=== PATIENT | male | born 1955 | race Caucasian/White ===

== ENCOUNTER 2019-01-20 12:59 | Inpatient (IN) | payer OTHER ==
[2019-01-20] MEDS ORDERED: SODIUM CHLORIDE 0.9% 500 ML 500 ML IV STA (13:06)
[2019-01-20 13:26] LABS: Basophils # (A) 0.1 k/uL (0-0.2); Basophils % (A) 1 %; Eosinophils # (A) 0.1 k/uL (0-0.7); Eosinophils % (A) 1 %; HCT 43.1 % (39.0-53.0); HGB 14.5 gm/dL (13.0-17.5); Lymphocytes # (A) 2.7 k/uL (1.0-4.8); Lymphocytes % (A) 29 %; MCH 30.9 pg (25.0-35.0); MCHC 33.6 g/dL (31.0-37.0); Mean Platelet Volume 7.5; Monocytes # (A) 0.5 k/uL (0-1.0); Monocytes % (A) 6 %; Neutrophils # (A) 5.6 k/uL (1.3-7.7); Neutrophils % (A) 61 %; Platelet Count 295 k/uL (150-450); RBC 4.68 m/uL (4.30-5.90); RDW 13.8 % (11.5-15.5); WBC 9.2 k/uL (3.8-10.6)
[2019-01-20 13:37] LABS: Albumin 3.8 g/dL (3.5-5.0); Calcium 9.7 mg/dL (8.4-10.2); Magnesium 1.9 mg/dL (1.6-2.3); Potassium 4.1 mmol/L (3.5-5.1); Total Protein 6.5 g/dL (6.3-8.2)
--- NOTE | 2019-01-20 13:38 | XR ---
EXAMINATION TYPE: XR chest 2V DATE OF EXAM: 01/20/2019 COMPARISON: None HISTORY: 63-year-old male with syncope TECHNIQUE: AP and lateral views FINDINGS: Heart borderline to mildly enlarged. Mild elongation thoracic aorta. Suggestion of some vascular ecta cheri along the superior mediastinum. Mild interstitial prominence. No consolidation or pleural effusio n. IMPRESSION: Borderline to mild cardiomegaly. Chronic appearing changes. No acute process seen.
[2019-01-20 13:56] LABS: D-Dimer 0.28 mg/L FEU (<0.60); Prothrombin Time 10.3 sec (9.0-12.0)
[2019-01-20 14:08] LABS: Partial Thromboplastin Time 20.5 sec (22.0-30.0)
--- NOTE | 2019-01-20 14:29 | CT ---
EXAMINATION TYPE: CT brain sami zhang con DATE OF EXAM: 01/20/2019 COMPARISON: None HISTORY: 63-year-old male Syncope, pain CT DLP: 1144.2 mGycm Automated exposure control for dose reduction was used. Technique: Examination of the head was done in axial plane without intravenous contrast. Coronal and sagittal reconstructions performed. CT of the cervical spine was obtained in axial plane without intravenous injection of contrast mater ial. Coronal and sagittal reformatted images were obtained from the axial views for evaluation of f ractures, spinal alignment and canal. FINDINGS: Head: There is no evidence of acute intracranial hemorrhage, acute ischemic changes, or extra-axial fluid collection. There is a prominent CSF space along the anterior left middle cranial fossa measuring 4.7 cm AP by 2. 3 cm wide by 3.0 cm craniocaudal with mild localized mass effect onto the left temporal lobe. No effa cement of basal subarachnoid cisterns, midline shift, or hydrocephalus. Blackwell-white matter distinction is preserved. Scattered mild mucosal thickening ethmoid air cells. Polyp or mucosal retention cyst along the floor of the right maxillary sinus. Orbits and globes are intact. Mastoid air cells well pneumatized. Cervical spine: No craniocervical junction abnormality, predental space widening, or prevertebral soft tissue swellin g. Preserved alignment of the cervical spine. Moderate degenerative disc disease at C5-C6 with disc oste ophyte complex contributing to mild focal spinal canal stenosis here. Scattered mild facet and uncovertebral joint degenerative change. No acute fracture of the cervical spine. Sagittal and coronal reformatted images confirm above findings. COMBINED IMPRESSION: 1. No acute intracranial abnormality seen. 2. Prominent 4.7 x 3.0 cm CSF space along the anterior left middle cranial fossa suggestive of an meg chnoid cyst. 3. No acute fracture or malalignment of the cervical spine. Mild to moderate focal spondylotic change at C5-C6.
--- NOTE | 2019-01-20 14:31 | CT ---
EXAMINATION TYPE: CT facial bones wo con DATE OF EXAM: 01/20/2019 COMPARISON: None HISTORY: 63-year-old male Syncope and pain TECHNIQUE: Contiguous high-resolution axial scanning through the facial bones without IV contrast. Co ping reconstructions performed. CT DLP: Included in DLP of Brain and C-spine scan mGycm Automated exposure control for dose reduction was used. FINDINGS: Scattered mild mucosal thickening ethmoid air cells. Polyp or mucosal retention cyst floor of the rig ht maxillary sinus and lobulated mucosal thickening floor of the left maxillary sinus. Zygomatic arches, orbits and globes, pterygoid plates, and the visualized mandible appears intact. Leftward nasal septal deviation. No nasal bone or facial bone fracture seen. IMPRESSION: NO ACUTE FACIAL BONE FRACTURE SEEN. MILD CHRONIC ETHMOID AND MAXILLARY SINUS DISEASE. SLIGHT LEFTWARD NASAL SEPTAL DEVIATION.
--- NOTE | 2019-01-20 17:05 | ED ---
Syncope HPI - General Chief Complaint: Syncope Stated Complaint: SYNCOPE Source: EMS Mode of arrival: EMS Limitations: no limitations - History of Present Illness Initial Comments: The patient is a 63-year-old male presents to the emergency room with reported syncopal episode at home. Patient reports he was at home with his . He did have a exhibition specialist come to his house to get him an estimated. States that he offered him a hit off of his THC vape pen. Patient reports that he took a hit. Shortly afterwards he became acutely diaphoretic and lost consciousness. reports that the patient was unconscious for approximately 15 seconds. She reports that he hit his right side of his head on the table. There was no seizure-like activity. No bowel or bladder incontinence. The patient denies any chest pain or shortness of breath with the episode. The patient denies a history of cardiac disease however the patient has not seen a physician in over 25 years. He takes no prescribed medications. He denies using any other illicit substances. Denies any headache or visual changes. No ripping or tearing sensation to his back. EMS was called. They report the patient was diaphoretic. Peripheral IV was established patient was given gentle fluid hydration. 12 lead EKG was performed. He denies any diarrhea, cuts patient, melanotic stools or hematochezia. Denies any changes in his bladder habits. No back or Flank pain. There are no alleviating, Percepting or modifying factors - Related Data Home Medications Medication Instructions Recorded Confirmed No Known Home Medications 01/20/19 01/20/19 Allergies Allergy/AdvReac Type Severity Reaction Status Date / Time No Known Allergies Allergy Verified 01/20/19 14:06 Review of Systems ROS Statement: Those systems with pertinent positive or pertinent negative responses have been documented in the HPI. ROS Other: All systems not noted in ROS Statement are negative. Past Medical History Past Medical History: Atrial Fibrillation History of Any Multi-Drug Resistant Organisms: None Reported Past Surgical History: Tonsillectomy Past Psychological History: No Psychological Hx Reported Smoking Status: Former smoker Past Alcohol Use History: Daily Past Drug Use History: None Reported - Past Family History Father Family Medical History: Diabetes Mellitus, Myocardial Infarction ([place]) General Exam Limitations: no limitations Course Vital Signs 01/20/19 01/20/19 01/20/19 13:01 13:12 15:12 Temperature 97.5 F L Pulse Rate 63 63 Respiratory 18 18 Rate Blood Pressure 101/74 119/75 129/96 O2 Sat by Pulse 98 Oximetry 01/20/19 18:11 Temperature Pulse Rate 85 Respiratory 18 Rate Blood Pressure 110/87 O2 Sat by Pulse 98 Oximetry EKG Findings - EKG Comments: EKG Findings:: EKG demonstrates A. fib versus flutter with a ventricular rate of 63. QRS 114. QTC 456. There is ST elevation in leads V2 and V3. He does have some inverted T waves in 2 and 3. There is a mild intraventricular conduction delay Medical Decision Making - Medical Decision Making Upon arrival patient is placed in room 3. He is hooked up to continuous pulse ox and vehicle monitor technician. A 12-lead EKG is performed and the patient which does demonstrate atrial flutter with a controlled ventricular response. There is also ST segment elevation in the anterior leads. The patient is pain-free at this time. I did recommend fluid hydration and laboratory studies. The patient is sent for a CT of his brain, cervical spine, facial bones and orbits. Chest x-ray is also performed. Upon return results there discuss the patient. Labwork is essentially unremarkable. Chest x-ray does demonstrate an enlarged cardiac silhouette. I did place proparacaine in the patient's right eye. The patient's eye was dyed with a flourocine strip. It does reveal a corneal abrasion at the 9 o'clock was addition. Visual acuity demonstrates 20/50 in the left eye, 20/40 in the right eye and 20/20 bilaterally. The patient was admitted to Dr. Gregg. I did discuss the case with him. I will place ca rdiology and ophthalmology on consult. The patient remained in stable condition was transported to the floor - Lab Data Result diagrams: 01/20/19 13:11 01/20/19 13:11 Lab Results 01/20/19 01/20/19 01/20/19 Range/Units 13:11 13:11 13:11 WBC 9.2 (3.8-10.6) k/uL RBC 4.68 (4.30-5.90) m/uL Hgb 14.5 (13.0-17.5) gm/dL Hct 43.1 (39.0-53.0) % MCV 92.0 (80.0-100.0) fL MCH 30.9 (25.0-35.0) pg MCHC 33.6 (31.0-37.0) g/dL RDW 13.8 (11.5-15.5) % Plt Count 295 (150-450) k/uL Neutrophils % 61 % Lymphocytes % 29 % Monocytes % 6 % Eosinophils % 1 % Basophils % 1 % Neutrophils # 5.6 (1.3-7.7) k/uL Lymphocytes # 2.7 (1.0-4.8) k/uL Monocytes # 0.5 (0-1.0) k/uL Eosinophils # 0.1 (0-0.7) k/uL Basophils # 0.1 (0-0.2) k/uL PT 10.3 (9.0-12.0) sec INR 1.0 (<1.2) APTT 20.5 L (22.0-30.0) sec D-Dimer 0.28 (<0.60) mg/L FEU Sodium 140 (137-145) mmol/L Potassium 4.1 (3.5-5.1) mmol/L Chloride 107 (98-107) mmol/L Carbon Dioxide 24 (22-30) mmol/L Anion Gap 9 mmol/L BUN 29 H (9-20) mg/dL Creatinine 1.23 (0.66-1.25) mg/dL Est GFR (CKD-EPI)AfAm 72 (>60 ml/min/1.73 sqM) Est GFR (CKD-EPI)NonAf 62 (>60 ml/min/1.73 sqM) Glucose 131 H (74-99) mg/dL Calcium 9.7 (8.4-10.2) mg/dL Magnesium 1.9 (1.6-2.3) mg/dL Total Bilirubin 1.0 (0.2-1.3) mg/dL AST 38 (17-59) U/L ALT 42 (21-72) U/L Alkaline Phosphatase 53 (38-126) U/L Troponin I (0.000-0.034) ng/mL Total Protein 6.5 (6.3-8.2) g/dL Albumin 3.8 (3.5-5.0) g/dL 01/20/19 Range/Units 13:11 WBC (3.8-10.6) k/uL RBC (4.30-5.90) m/uL Hgb (13.0-17.5) gm/dL Hct (39.0-53.0) % MCV (80.0-100.0) fL MCH (25.0-35.0) pg MCHC (31.0-37.0) g/dL RDW (11.5-15.5) % Plt Count (150-450) k/uL Neutrophils % % Lymphocytes % % Monocytes % % Eosinophils % % Basophils % % Neutrophils # (1.3-7.7) k/uL Lymphocytes # (1.0-4.8) k/uL Monocytes # (0-1.0) k/uL Eosinophils # (0-0.7) k/uL Basophils # (0-0.2) k/uL PT (9.0-12.0) sec INR (<1.2) APTT (22.0-30.0) sec D-Dimer (<0.60) mg/L FEU Sodium (137-145) mmol/L Potassium (3.5-5.1) mmol/L Chloride (98-107) mmol/L Carbon Dioxide (22-30) mmol/L Anion Gap mmol/L BUN (9-20) mg/dL Creatinine (0.66-1.25) mg/dL Est GFR (CKD-EPI)AfAm (>60 ml/min/1.73 sqM) Est GFR (CKD-EPI)NonAf (>60 ml/min/1.73 sqM) Glucose (74-99) mg/dL Calcium (8.4-10.2) mg/dL Magnesium (1.6-2.3) mg/dL Total Bilirubin (0.2-1.3) mg/dL AST (17-59) U/L ALT (21-72) U/L Alkaline Phosphatase (38-126) U/L Troponin I <0.012 (0.000-0.034) ng/mL Total Protein (6.3-8.2) g/dL Albumin (3.5-5.0) g/dL Disposition Clinical Impression: Syncope and collapse, New onset a-fib Disposition: ADMITTED IP TO THIS [facility] Condition: Serious Is patient prescribed a controlled substance at d/c from ED?: No Decision to Admit Reason: Admit from EC Decision Date: 01/20/19 Decision Time: 17:10
[2019-01-20] MEDS ORDERED: PROPARACAINE 0.5% OPHTH DROPS 15 ML BTL RIGHT EYE STA (17:10)
[2019-01-20] MEDS ORDERED: NALOXONE 0.4 MG/ML 1 ML VIAL IV PRN (17:12)
--- NOTE | 2019-01-20 18:50 | P.HPIM ---
History of Present Illness H&P Date: 01/20/19 Chief Complaint: Syncope 63-year-old male with no significant PMH presents the ED after syncopal episode. He is here with his . Patient reports completing a 13 mile jog a couple of hours prior to his syncopal episode. He was able to eat 3 cookies and a bowl of cereal after his workup. He was sitting at the kitchen table when he inhaled the vape pen of someone that was working in his house. Patient reports not knowing what substance was in the vape pen. Within 10 minutes, patient started to feel lightheaded, sweating, shortness of breath. He had a syncopal episode and his is present. reports that the patient lost consciousness for 1 minute. She denied any shaking of extremities, bladder or bowel incontinence. reports that patient's pupils looked dilated bilaterally. When patient regained consciousness, he felt weak and wobbly. reports that the patient may have stopped breathing during this time. She was concerned, prompting her to call EMS. Patient denies any history of smoking. Patient reports smoking marijuana, recreationally and drinks 2 beers daily. Patient denies any headaches, lower extremity edema, nausea or vomiting, fever or chills, cough, chest pain, changes in urination or bowel habits. No changes in appetite or weight. Patient does report a 2-3 month history of decreased exercise tolerance during this time. In the ED, his vital signs were stable. CBC and coagulation panel was negative. D-dimer was negative. CMP showed BUN of 29, glucose of 131. Troponin was less than 0.012, EKG showing atrial fibrillation. Patient is admitted for syncopal episode, new onset A. fib with cardiology on consult. Review of Systems Pertinent positives and negatives as discussed in HPI, a complete review of systems was performed and all other systems are negative. Past Medical History Past Medical History: Atrial Fibrillation History of Any Multi-Drug Resistant Organisms: None Reported Past Surgical History: Tonsillectomy Past Psychological History: No Psychological Hx Reported Smoking Status: Former smoker Past Alcohol Use History: Daily Past Drug Use History: None Reported Medications and Allergies Home Medications Medication Instructions Recorded Confirmed Type No Known Home Medications 01/20/19 01/20/19 History Allergies Allergy/AdvReac Type Severity Reaction Status Date / Time No Known Allergies Allergy Verified 01/20/19 14:06 Physical Exam Vitals: Vital Signs Temp Pulse Resp BP Pulse Ox 01/20/19 18:11 85 18 110/87 98 01/20/19 15:12 63 18 129/96 98 01/20/19 13:12 119/75 01/20/19 13:01 97.5 F L 63 18 101/74 Intake and Output 01/20/19 01/20/19 01/20/19 06:59 14:59 22:59 Other: Weight 81.647 kg General: [non toxic], [no distress], [appears at stated age] Derm: [warm], [dry] Head: [atraumatic], [normocephalic], [symmetric] Eyes: [EOMI], [no lid lag], [anicteric sclera] Mouth: [no lip lesion], [mucus membranes moist] Cardiovascular: [S1S2 reg], [irregularly irregular], [positive posterior tibial pulse bilateral], Lungs: [CTA bilateral], [no rhonchi, no rales] , [no accessory muscle use] Abdominal: [soft], [ nontender to palpation], [no guarding], [no appreciable organomegaly] Ext: [no gross muscle atrophy], [no edema], [no contractures] Neuro: [ CN II-XI grossly intact], [no focal neuro deficits] Psych: [Alert], [oriented], [appropriate affect] Results CBC & Chem 7: 01/20/19 13:11 01/20/19 13:11 Labs: Abnormal Lab Results - Last 24 Hours (Table) 01/20/19 01/20/19 Range/Units 13:11 13:11 APTT 20.5 L (22.0-30.0) sec BUN 29 H (9-20) mg/dL Glucose 131 H (74-99) mg/dL Thrombosis Risk Factor Assmnt - Choose All That Apply Any of the Below Risk Factors Present?: Yes Each Factor Represents 1 point: Obesity (BMI >25) Each Risk Factor Represents 2 Points: Age 61-74 years Thrombosis Risk Factor Assessment Total Risk Factor Score: 3 Thrombosis Risk Factor Assessment Level: Moderate Risk Assessment and Plan Assessment: Assessment and Plan Syncopal episode possibly vasovagal from inhalation of THC or arrhythmia induced, rule out acute coronary syndrome New-onset atrial fibrillation Troponin less than 0.012 with EKG showing atrial fibrillation. Chest x-ray with no acute process and cardiomegaly. CT brain shows arachnoid cyst, CT C-spine shows spondyolitic changes. Plans: Check orthostats. Trend troponin/EKG to rule out ACS. Follow-up echocardiogram. Telemetry monitoring. Continue normal saline at 100 mL/h. Follow cardiology consultation. As seen on EKG. Plans: Obtain echocardiogram. Check TSH. Follow cardiology consultation. Defer anticoagulation to cardiology. DVT prophylaxis: Heparin Discussed with: [Patient and ] Anticipated discharge: [1-2 days] Anticipated discharge place: [Home] A total of [45] minutes was spent on the care of this complex patient more than 50% of the time was spent in counseling and care coordination. Patient names his Romero decision-maker in the case that he can't make decisions for himself. Patient would like to remain full code.
[2019-01-20] MEDS ORDERED: HYDROcodone/APAP 5-325MG 1 EACH TAB PO PRN (18:51)
[2019-01-20] MEDS ORDERED: ACETAMINOPHEN TAB 325 MG TAB PO PRN (18:51)
[2019-01-20] MEDS: HEPARIN SODIUM,PORCINE 5,000 UNIT/ML 1 ML VIAL SQ SCH (21:53)
[2019-01-20] MEDS: SODIUM CHLORIDE 0.9% 1,000 ML IV SCH (21:54)
[2019-01-21 06:35] LABS: Basophils % (A) 1 %; Eosinophils # (A) 0.1 k/uL (0-0.7); Eosinophils % (A) 2 %; HCT 41.7 % (39.0-53.0); HGB 13.7 gm/dL (13.0-17.5); Lymphocytes # (A) 2.2 k/uL (1.0-4.8); Lymphocytes % (A) 36 %; MCH 30.5 pg (25.0-35.0); MCHC 32.7 g/dL (31.0-37.0); MCV 93.3 fL (80.0-100.0); Mean Platelet Volume 7.6; Monocytes # (A) 0.4 k/uL (0-1.0); Monocytes % (A) 6 %; Neutrophils # (A) 3.2 k/uL (1.3-7.7); Neutrophils % (A) 53 %; Platelet Count 248 k/uL (150-450); RBC 4.47 m/uL (4.30-5.90); RDW 14.3 % (11.5-15.5); WBC 6.1 k/uL (3.8-10.6)
[2019-01-21 06:44] LABS: Calcium 9.3 mg/dL (8.4-10.2)
[2019-01-21 06:46] LABS: Potassium 6.2 mmol/L (3.5-5.1)
[2019-01-21] MEDS ORDERED: DEXTROSE 10 % IN WATER 250 ML BAG IV STA (07:02)
[2019-01-21] MEDS ORDERED: INSULIN REGULAR 100 UNIT/ML VIAL IV ONE (07:03)
[2019-01-21] MEDS: HEPARIN SODIUM,PORCINE 5,000 UNIT/ML 1 ML VIAL SQ SCH ×2 (08:34→20:57)
--- NOTE | 2019-01-21 10:56 | CONS ---
CONSULTATION CHIEF COMPLAINT: Syncope. This is a 63-year-old gentleman with no significant past medical history, presented to the hospital having had an episode of syncope. The patient ran 14 miles yesterday, came home. A couple of hours later he was sitting at a table and was smoking an E cigarette and then passed out. This was transient. No bladder or bowel incontinence. Sudden, at rest. No clear-cut relieving or exacerbating factors. The patient recovered from this spontaneously. He came to the ER where he was found to be in atrial fibrillation with controlled ventricular rate. The patient states that he has noticed irregular heart rhythm on and off in the past. Has never seen a physician in many years. There is no history of coronary artery disease or congestive heart failure. There is no history of leg edema, PND or orthopnea. There is no history of valvular heart disease. PAST MEDICAL HISTORY: Negative for hypertension, diabetes, dyslipidemia. MEDICATIONS: None. ALLERGIES: None. FAMILY HISTORY: Negative for premature coronary artery disease. SOCIAL HISTORY: Negative for smoking, EtOH abuse or drug abuse. REVIEW OF SYSTEMS: HEENT: Unremarkable. CARDIAC: As described above. RESPIRATORY: Negative. GI: Negative. GENITOURINARY: Negative. ALLERGY: Negative. SKIN: Negative. MUSCULOSKELETAL: Negative for arthritis. PSYCHOSOCIAL: Negative. ENDOCRINE: Negative. DERM: Negative. CONSTITUTIONAL: Negative. ONCOLOGICAL: Negative. Rest of the system review is not relevant. EXAM: Comfortable at rest. Vital signs are stable. There is no jugular venous distention. Carotid upstroke is normal. There is no bruit. Chest exam reveals good air entry bilaterally. Heart exam reveals first and second heart sounds, irregular rhythm and a systolic murmur at the left lower sternal border. Abdomen is soft. Examination of extremities did not reveal any edema. Peripheral pulses are felt. EKG shows atrial fibrillation with controlled ventricular rate. Hemoglobin is normal at 13.7, platelet count is 248, creatinine is 1.2 on admission. His BUN was 29, creatinine was 1.2. Tropes are negative. TSH is normal. ASSESSMENT: 1. Syncope. 2. Persistent atrial fibrillation. PLAN: The patient's syncope could be related to slow heart rate from his atrial fibrillation, could be related to the inhalation from the E cigarette or could be intravascular volume depletion. Since admission he is doing well. Did not have significant pauses. I am going to obtain an echo on him to evaluate his LV function. I talked to him at length about his treatment options. Understanding all the issues, patient does not want to go to cardioversion. Does not want to start on anticoagulant. I will start him on aspirin 325 mg daily, obtain an echo in the morning. If he is doing good, let him go home and arrange outpatient followup through my office. This morning the potassium is elevated, but the exact significance of this is unclear. The initial potassium was normal. MMODL / IJN: [id number] /
[2019-01-21 11:50] LABS: Calcium 9.5 mg/dL (8.4-10.2); Potassium 4.6 mmol/L (3.5-5.1)
[2019-01-21] MEDS: ASPIRIN 325 MG TAB PO SCH (11:57)
[2019-01-21 12:39] VITALS: RESP 18
--- NOTE | 2019-01-21 12:57 | P.PN ---
Subjective Progress Note Date: 01/21/19 Principal diagnosis: Syncope Patient was seen and examined. No acute events overnight. Patient reports complete resolution of his symptoms. He denies any chest pain, shortness breath or palpitations. No nausea or vomiting. No fever or chills. States that he had a funny feeling when taking aspirin this morning. Objective - Vital Signs Vital signs: Vital Signs Temp 97.8 F 01/21/19 12:00 Pulse 58 L 01/21/19 12:00 Resp 18 01/21/19 12:00 BP 121/65 01/21/19 12:00 Pulse Ox 98 01/21/19 12:00 Intake & Output 01/20/19 01/21/19 01/21/19 18:59 06:59 18:59 Intake Total 240 480 Balance 240 480 Weight 81.647 kg 84.1 kg Intake: Oral 240 480 Other: Voiding Method Toilet # Voids 1 - Exam General: [non toxic], [no distress], [appears at stated age] Derm: [warm], [dry] Head: [atraumatic], [normocephalic], [symmetric] Eyes: [EOMI], [no lid lag], [anicteric sclera] Mouth: [no lip lesion], [mucus membranes moist] Cardiovascular: [S1S2 reg], [irregularly irregular], [positive DP and PT pulse bilateral], Lungs: [CTA bilateral], [no rhonchi, no rales] , [no accessory muscle use] Abdominal: [soft], [ nontender to palpation], [no guarding], [no appreciable organomegaly] Ext: [no gross muscle atrophy], [no edema], [no contractures] Neuro: [no focal neuro deficits] Psych: [Alert], [oriented], [appropriate affect] - Labs CBC & Chem 7: 01/21/19 05:43 01/21/19 11:29 Labs: Abnormal Lab Results - Last 24 Hours (Table) 01/20/19 01/20/19 01/21/19 Range/Units 13:11 13:11 05:43 APTT 20.5 L (22.0-30.0) sec Potassium 6.2 H* (3.5-5.1) mmol/L Chloride 110 H (98-107) mmol/L BUN 29 H 22 H (9-20) mg/dL Glucose 131 H (74-99) mg/dL 01/21/19 Range/Units 11:29 APTT (22.0-30.0) sec Potassium (3.5-5.1) mmol/L Chloride 110 H (98-107) mmol/L BUN 24 H (9-20) mg/dL Glucose 73 L (74-99) mg/dL Assessment and Plan Assessment: Assessment and Plan Syncopal episode possibly vasovagal from inhalation of THC or arrhythmia induced, rule out acute coronary syndrome New-onset atrial fibrillation Hyperkalemia Elevated BUN Troponin less than 0.012 3 with EKG showing atrial fibrillation. Chest x-ray with no acute process and cardiomegaly. CT brain shows arachnoid cyst, CT C- spine shows spondyolitic changes. Plans: Check orthostats, discussed with nurse. ACS ruled out. Follow-up echocardiogram. Telemetry monitoring. Continue normal saline at 100 mL/h. Follow cardiology consultation. As seen on EKG. TSH within normal limits. Plans: Obtain echocardiogram. Follow cardiology consultation. Anticoagulation with aspirin 325 mg by mouth daily as per cardiology patient does not want anticoagulation. Potassium 6.2 and given insulin with D10. Plans: Repeat potassium within normal limits. Repeat BMP in the morning. BUN 24 likely due to dehydration. Creatinine within normal limits. Plans: Continue normal saline as above. Daily BMP. [Patient admitted for syncopal episode. Evaluated by cardiology, echocardiogram pending. DC planning based on cardiology clearance.]
[2019-01-21] MEDS: prednisoLONE ACETATE 1% OPHTH DROPS 5 ML BTL RIGHT EYE SCH ×3 (13:45→20:58)
[2019-01-21] MEDS: OFLOXACIN 0.3% OPHTH DROPS 5 ML BOTTLE RIGHT EYE SCH ×2 (13:46→20:58)
[2019-01-21] MEDS: SODIUM CHLORIDE 0.9% 1,000 ML IV SCH ×2 (13:48→15:29)
--- NOTE | 2019-01-22 00:11 | CONS ---
CONSULTATION OPHTHALMOLOGY CONSULT: DATE OF SERVICE: 01/21/2019. CHIEF COMPLAINT: Irritation, right eye. HISTORY OF PRESENT ILLNESS: Mr. Gutierrez is a 63-year-old male with a recent syncopal episode and currently has irritation in his right eye. The patient notes that his right eye is slightly red and slightly irritated. This is mild per the patient. This has been constant since the syncopal episode last night. Visual acuity is not affected. He denies headache. REVIEW OF SYSTEMS: Significant for loss of consciousness and syncopal episode last night. He recently felt lightheaded and sweaty and short of breath. He denies headaches, lower extremity edema, nausea, vomiting, chills or cough or chest pain. PAST MEDICAL HISTORY: Atrial fibrillation. SOCIAL HISTORY: Smoking status, former smoker, uses the Vape pen. Social history: Daily alcohol use. PAST SURGICAL HISTORY: Tonsillectomy. MEDICATIONS: No known home medications. ALLERGIES: No known drug allergies. OPHTHALMIC EXAM: Visual acuity is 20/30 at near with near card without correction in the right eye, 20/60 at near with near card with correction in the left eye. Pupils are equal, round, reactive to light and accommodation. There is no afferent pupillary defect. Extraocular movements are full. Visual field is normal to confrontation. Cornea is clear in both eyes. There is slight injection in the conjunctivae in the right eye. There is trace cell in the anterior chamber in the right eye. The anterior chamber is within normal limits in the left eye. There is 1+ nuclear sclerotic cataract in both eyes. The retina and vitreous are within normal limits. ASSESSMENT: Traumatic iritis, right eye. The patient appears to have suffered a contusion to the right eye. There is currently no corneal epithelial defect. I recommend starting prednisolone acetate, prednisolone acetate 1% drops in the right eye 4 times daily for 3 days, then 2 times daily for 3 days and then this can be stopped. I also recommend starting ofloxacin 0.3% drops in the right eye 3 times daily for 6 days and then stop. I also recommend that the patient followup with me as an outpatient in the office at [facility] in the next week or so. Thank you for allowing me to participate in this patient's care. Sincerely, MMODL / IJN: [id number] /
[2019-01-22 06:58] LABS: Potassium 5.3 mmol/L (3.5-5.1)
[2019-01-22] MEDS: ASPIRIN 325 MG TAB PO SCH (09:35)
[2019-01-22] MEDS: prednisoLONE ACETATE 1% OPHTH DROPS 5 ML BTL RIGHT EYE SCH (09:36)
[2019-01-22] MEDS: OFLOXACIN 0.3% OPHTH DROPS 5 ML BOTTLE RIGHT EYE SCH (09:36)
--- NOTE | 2019-01-22 10:56 | ECHOF ---
Referral Reason:syncope MEASUREMENTS -------- HEIGHT: 177.8 cm WEIGHT: 83.9 kg BP: 114/66 RVIDd: 3.8 cm (< 3.3) IVSd: 1.5 cm (0.6 - 1.1) LVIDd: 3.9 cm (3.9 - 5.3) LVPWd: 1.9 cm (0.6 - 1.1) IVSs: 2.0 cm LVIDs: 2.8 cm LVPWs: 2.2 cm LAESV Index (A-L): 57.46 ml/m Ao Diam: 3.7 cm (2.0 - 3.7) AV Cusp: 2.5 cm (1.5 - 2.6) LA Diam: 4.3 cm (2.7 - 3.8) MV EXCURSION: 21.171 mm (> 18.000) MV EF SLOPE: 138 mm/s (70 - 150) EPSS: 0.5 cm RAP: 5.00 mmHg RVSP: 32.27 mmHg FINDINGS -------- Atrial fibrillation. This was a technically adequate study. The left ventricular size is normal. There is moderate concentric left ventricular hypertrophy. O verall left ventricular systolic function is low-normal with, an EF between 50 - 55 %. Left ventric ular fillimg pressure cannot be estimated due to Atrial fibrillation. The right ventricle is mild to moderately enlarged. LA is severely dilated >40 ml/m2 RA appears enlarged. Interatrial and interventricular septum intact. The aortic valve is trileaflet and appears structurally normal. There is no evidence of aortic regu rgitation. There is no evidence of aortic stenosis. [id number] mitral regurgitation is present. Mild tricuspid regurgitation present. There is borderline pulmonary artery hypertension. The righ t ventricular systolic pressure, as measured by Doppler, is 32.27mmHg. There is no pulmonic regurgitation present. The aortic root size is normal. IVC Not well visulized. There is no pericardial effusion. CONCLUSIONS -------- 1. Atrial fibrillation. 2. This was a technically adequate study. 3. The left ventricular size is normal. 4. There is moderate concentric left ventricular hypertrophy. 5. Left ventricular fillimg pressure cannot be estimated due to Atrial fibrillation. 6. The right ventricle is mild to moderately enlarged. 7. LA is severely dilated >40 ml/m2 8. RA appears enlarged. 9. Interatrial and interventricular septum intact. 10. The aortic valve is trileaflet and appears structurally normal. 11. There is no evidence of aortic regurgitation. 12. There is no evidence of aortic stenosis. 13. [id number] mitral regurgitation is present. 14. Mild tricuspid regurgitation present. 15. There is borderline pulmonary artery hypertension. 16. The right ventricular systolic pressure, as measured by Doppler, is 32.27mmHg. 17. There is no pulmonic regurgitation present. 18. The aortic root size is normal. 19. IVC Not well visulized. 20. There is no pericardial effusion. [employer] MEMBER: Doris Gant RDCS
[2019-01-22] MEDS ORDERED: INSULIN REGULAR 100 UNIT/ML VIAL IV ONE (11:21)
[2019-01-22] MEDS ORDERED: DEXTROSE 10 % IN WATER 250 ML IV STA ×2 (11:21→12:02)
--- NOTE | 2019-01-22 11:43 | P.DS ---
Providers Date of admission: 01/21/19 15:10 Expected date of discharge: 01/22/19 Attending physician: Rosalinda Gregg MD Consults: 01/20/19 17:14 Consult Physician Urgent Consulting Provider: [facility] Consult Reason/Comments: new onset afib, cardiomegaly, syncope Do you want consulting provider notified?: Yes 01/20/19 17:51 Consult Physician Stat Consulting Provider: Addie West Consult Reason/Comments: right eye corneal abrasion, s/p fall Do you want consulting provider notified?: Yes Primary care physician: Stated None Hospital Course: 63-year-old male with no significant PMH presents the ED after syncopal episode. He is here with his . Patient reports completing a 13 mile jog a couple of hours prior to his syncopal episode. He was able to eat 3 cookies and a bowl of cereal after his workup. He was sitting at the kitchen table when he inhaled the vape pen of someone that was working in his house. Patient reports not knowing what substance was in the vape pen. Within 10 minutes, patient started to feel lightheaded, sweating, shortness of breath. He had a syncopal episode and his is present. reports that the patient lost consciousness for 1 minute. She denied any shaking of extremities, bladder or bowel incontinence. reports that patient's pupils looked dilated bilaterally. When patient regained consciousness, he felt weak and wobbly. reports that the patient may have stopped breathing during this time. She was concerned, prompting her to call EMS. Patient denies any history of smoking. Patient reports smoking marijuana, recreationally and drinks 2 beers daily. Patient denies any headaches, lower extremity edema, nausea or vomiting, fever or chills, cough, chest pain, changes in urination or bowel habits. No changes in appetite or weight. Patient does report a 2-3 month history of decreased exercise tolerance during this time. In the ED, his vital signs were stable. CBC and coagulation panel was negative. D-dimer was negative. CMP showed BUN of 29, glucose of 131. Troponin was less than 0.012, EKG showing atrial fibrillation. Patient is admitted for syncopal episode, new onset A. fib with cardiology on consult. His syncopal episode was thought to be secondary to vasovagal from inhalation of THC or arrhythmia induced atrial fibrillation with slowed heart rate. Plans was to rule out ACS. Troponin was less than 0.0123 with EKG showing atrial fibrillation, acute coronary syndrome was ruled out. Chest x-ray showed no acute process. CT of the brain showed an arachnoid cyst, CT of the C-spine showed spondylitic changes. Orthostats was negative. Cardiology was consulted and recommended echocardiogram. Echocardiogram showed EF 50-55% with moderate concentric LVH. Cardiology recommended starting the patient on aspirin as the patient was refusing anticoagulation. Cardiology cleared the patient for discharge. Patient was seen and examined. No acute events overnight. No further dizziness. No chest pain, shortness breath or palpitations. No nausea or vomiting. No fever or chills. General: [non toxic], [no distress], [appears at stated age] Derm: [warm], [dry] Head: [atraumatic], [normocephalic], [symmetric] Eyes: [EOMI], [no lid lag], [anicteric sclera] Mouth: [no lip lesion], [mucus membranes moist] Cardiovascular: [S1S2 reg], [irregularly irregular], [positive DP and PT pulse bilateral], Lungs: [CTA bilateral], [no rhonchi, no rales] , [no accessory muscle use] Abdominal: [soft], [ nontender to palpation], [no guarding], [no appreciable organomegaly] Ext: [no gross muscle atrophy], [no edema], [no contractures] Neuro: [no focal neuro deficits] Psych: [Alert], [oriented], [appropriate affect] Assessment and Plan Syncopal episode possibly vasovagal from inhalation of THC or arrhythmia induced, rule out acute coronary syndrome New-onset atrial fibrillation Hyperkalemia Elevated BUN Troponin less than 0.012 3 with EKG showing atrial fibrillation. Chest x-ray with no acute process and cardiomegaly. CT brain shows arachnoid cyst, CT C- spine shows spondyolitic changes. Orthostats negative. Echocardiogram shows EF 50-55% with moderate concentric LVH. Plans: ACS ruled out. Telemetry monitoring. Continue normal saline at 100 mL/h. Follow cardiology consultation. As seen on EKG. TSH within normal limits. Plans: Follow cardiology consultation. Anticoagulation with aspirin 325 mg by mouth daily as per cardiology patient does not want anticoagulation. Potassium 5.3. Plans: We'll give 10 units insulin with the 10. Repeat BMP at 1 PM. BUN 24-22 likely due to dehydration. Creatinine within normal limits. Plans: Continue normal saline as above. Daily BMP. [Patient admitted for syncopal episode. Evaluated by cardiology, cleared for discharge. Found to have elevated potassium, will give 1 dose of insulin with D10, repeat BMP at 1 PM, DC if potassium normalizes.] This complex discharge took around 45 minutes. Pertinent Studies: Chest x-ray, face CT, head and C-spine CT, echocardiogram Patient Condition at Discharge: Stable Plan - Discharge Summary New Discharge Prescriptions: New Aspirin 325 mg PO DAILY #90 tab Ofloxacin 0.3% Ophth Soln [Ocuflox Ophth Soln] 1 drops RIGHT EYE TID #1 bottle prednisoLONE ACETATE 1% OPHTH [Pred Forte 1%] 1 drops RIGHT EYE QID #1 bottle Discharge Medication List Aspirin 325 mg PO DAILY #90 tab 01/22/19 [Rx] Ofloxacin 0.3% Ophth Soln [Ocuflox Ophth Soln] 1 drops RIGHT EYE TID #1 bottle 01/22/19 [Rx] prednisoLONE ACETATE 1% OPHTH [Pred Forte 1%] 1 drops RIGHT EYE QID #1 bottle 01/22/19 [Rx] Follow up Appointment(s)/Referral(s): Addie West MD [STAFF PHYSICIAN] - 1 Week (Please follow up in the next week per Dr. West.) None,Stated [Primary Care Provider] - 1-2 days (Please find primary provider.) Luther Canchola MD [STAFF PHYSICIAN] - 1 Week (Please follow up within 1-2 weeks of discharge from the hospital.) Patient Instructions/Handouts: A-fib (Atrial Fibrillation) (DC), Potassium Content of Foods List (DC), Syncope (DC) Activity/Diet/Wound Care/Special Instructions: Prednisolone Acetate 1% 1 gtt OD QID x 3 days, then BID x 3 days. Started on 01/21/19 Ofloxacin 0.3% 1 gtt OD TID x 6 days started on 01/21/19 Follow-up PCP within 1-2 days of discharge. Follow-up with your water leak repairer within 1 week of discharge. Follow-up with ophthalmology within 1 week of discharge. Take all medications as advised. Discharge Disposition: HOME SELF-CARE
[2019-01-22] MEDS: HEPARIN SODIUM,PORCINE 5,000 UNIT/ML 1 ML VIAL SQ SCH (12:16)
[2019-01-22 12:23] LABS: Cholesterol 162 mg/dL (<200); HDL Cholesterol 42 mg/dL (40-60); LDL Cholesterol,Calculated 91 mg/dL (0-99); Triglycerides 146 mg/dL (<150)
[2019-01-22 13:13] VITALS: BP 137/82; PULSE 48; TEMP 97.1
[2019-01-22 13:54] LABS: Glucose,Whole Blood 60 mg/dL (75-99)
[2019-01-22 14:05] LABS: Calcium 9.3 mg/dL (8.4-10.2); Potassium 4.9 mmol/L (3.5-5.1)
[2019-01-22 14:16] LABS: Glucose,Whole Blood 79 mg/dL (75-99)
--- NOTE | 2019-01-22 18:17 | PN ---
PROGRESS NOTE This is a 63-year-old gentleman who was admitted to hospital with syncope and was found to be in atrial fibrillation. An echocardiogram I performed shows normal LV systolic function with evidence of right ventricular enlargement and left atrial enlargement. He also has mild to moderate mitral regurgitation. The patient opted not to be on an anticoagulant. He is currently on aspirin. EXAM: Comfortable at rest. Heart rate is in the 40s per minute. Blood pressure is 133/71, respiratory rate is 18. Chest exam reveals good air entry bilaterally. Heart exam reveals first and second heart sounds, irregular rhythm. Systolic murmur at the apex. Abdomen is soft. Exam of extremities did not reveal any edema. Peripheral pulses are felt. ASSESSMENT: 1. Persistent atrial fibrillation with controlled ventricular rate. 2. Syncope, exact etiology is unclear. PLAN: The patient does not want to be anticoagulated. He exercises regularly without any symptoms. He had syncopal event while he was trying out E cigarettes, exercised a lot and was somewhat dehydrated; that could be the reason why he passed out. However, I will consider an outpatient 24 hour Holter to rule out bradycardia and a stress test to rule out ischemic heart disease. MMODL / IJN: [id number] /
== END 2019-01-22 15:07 | disposition home or self-care (01) | DRG 309 ==
LOC: EC 12:59 → 3SCARD 17:12 → OBSVTOIN 01-21 15:10
PROVIDERS: ADMIT Family Medicine; ATTEND Family Medicine
DX: I48.1 Persistent atrial fibrillation (principal); H20.9 Unspecified iridocyclitis; E86.0 Dehydration; E87.5 Hyperkalemia; G93.0 Cerebral cysts; I34.0 Nonrheumatic mitral (valve) insufficiency; I48.92 Unspecified atrial flutter; S05.01XA Injury of conjunctiva and corneal abrasion without foreign body, right eye, initial encounter; Z82.49 Family history of ischemic heart disease and other diseases of the circulatory system; Z83.3 Family history of diabetes mellitus; F17.290 Nicotine dependence, other tobacco product, uncomplicated
CPT/HCPCS: 36415; 70450; 70486; 71046; 72125; 80048; 80053; 80061; 83735; 84443; 84484; 85025; 85379; 85610; 85730; 93005; 93306; 96360; 96361; 99285

== ENCOUNTER → 2021-04-08 | Outpatient (CLI) | payer BC, MEDICARE ==
--- NOTE | 2021-04-08 16:32 | US ---
EXAMINATION TYPE: US venous doppler duplex LE RT DATE OF EXAM: 04/08/2021 2:42 PM COMPARISON: NONE CLINICAL HISTORY: 65-year-old male I83.11 Varicose veins of right lower extremity. RIGHT leg swelling , patient taking aspirin SIDE PERFORMED: Right TECHNIQUE: The lower extremity deep venous system is examined utilizing real time linear array sonog yara with graded compression, doppler sonography and color-flow sonography. FINDINGS: VESSELS IMAGED: Common Femoral Vein Deep Femoral Vein Greater Saphenous Vein * Femoral Vein Popliteal Vein Small Saphenous Vein * Proximal Calf Veins (* superficial vessels) Right Leg: Appears negative for DVT IMPRESSION: No evidence for DVT within the right lower extremity imaged from the groin to the upper calf.
== END | disposition home or self-care (01) ==
LOC: RADUSWWP 14:16
PROVIDERS: ATTEND Family Medicine
DX: I83.11 Varicose veins of right lower extremity with inflammation (principal)